=== PATIENT | male | born 1965 | race Two or more races ===

== ENCOUNTER 2024-10-05 12:18 | Emergency (ER) | payer MEDICAID, SELFPAY ==
[2024-10-05 12:44] VITALS: BP 128/87; PULSE 81; RESP 22; TEMP 36.9; O2SAT 94; BMI 51.7
--- NOTE | 2024-10-05 12:54 | PD.EDADULT ---
ED General RME/HPI General Chief complaint: Dizziness Stated complaint: DIZZY, WEAK, CONGESTED X 1 DAYS Time Seen by Provider: 10/05/24 12:52 Arrival date/time: 10/05/24 12:18 CC: Generalized weakness HPI ongoing for 1 day with dry mouth. Patient admits for the past 2 months has had increased urinary frequency and increased thirst. Has a history of hypertension but not of diabetes denies chest pain shortness of breath difficulty breathing nausea or vomiting no other complaints. Related Data Home Medications ?Medication ?Instructions ?Recorded ?Confirmed amlodipine 10 mg tablet (Norvasc) 10 mg PO QDAY #0 tabs 08/09/15 04/30/23 clonidine HCl 0.3 mg tablet 0.3 mg PO QDAY 11/13/22 05/02/23 hydroxyzine HCl 25 mg tablet 25 mg PO TID PRN Anxiety 11/13/22 04/30/23 metoprolol succinate 200 mg 200 mg PO QDAY 11/13/22 04/30/23 tablet,extended release 24 hr Previous Rx's ?Medication ?Instructions ?Recorded meloxicam 7.5 mg tablet 7.5 mg PO QDAY #10 tabs 10/25/23 Allergies Allergy/AdvReac Type Severity Reaction Status Date / Time No Known Allergies Allergy Verified 10/05/24 12:20 Review of Systems Review of Systems Narrative Review of Systems: GEN: No fever, no chills, no weight loss EYES: No discharge, no visual changes, no pain HEENT: No ear pain, no congestion, no sore throat PULM: No shortness of breath, no cough, no congestion CV: No chest pain, no dyspnea on exertion, no palpitations GI: No nausea, no vomiting, no diarrhea, no pain, no constipation : No frequency, no urgency, no dysuria MUSC/SKEL: No joint pain, no back pain SKIN: No rash PSYCH: No hallucinations, no depression HEME/LYMPH: No easy bleeding or bruising tendencies NEURO: +weakness, no headache Past Medical History Past Medical History NEUROLOGIC: Negative Neurological Disorders or Seizures CARDIAC: Positive Cardiac Disorders, Hypercholesterolemia and Hypertension; Negative Congestive Heart Failure RESPIRATORY: Negative Chronic Obstructive Pulmonary Disease (COPD) GASTROINTESTINAL: Positive Gastrointestinal Disorders, Ulcer and Obesity; Negative Hepatitis GENITOURINARY: Negative Genitourinary Disorders or Renal Disease MUSCULOSKELETAL: Positive Musculoskeletal Disorders and Arthritis ENDOCRINE: Negative Endocrine Disorders, Diabetes Mellitus Type 1 or Diabetes Mellitus Type 2 HEMATOLOGIC: Negative Blood Disorders PSYCHO/SOCIAL: Positive Anxiety OTHER HISTORY: Negative Hospitalization, Autoimmune Disease, Shingles, Blood Transfusions, Blood Transfusion Reaction, Anesthesia Reactions or Cancer Family History FAMILY HISTORY: Positive Family Cancer; Negative Family Psychiatric Problems, Family Respiratory Disorders, Family Cardiac Disorders, Family Gastrointestinal Problems, Family Surgery or Family Anesthesia Reaction Surgical History SURGICAL: Positive Arthroscopy Social History SMOKING STATUS: Never smoker SUBSTANCE USE: does not use ED Exam Narrative Physical exam: [General: Morbidly obese not in any acute distress Head normocephalic HEENT: Eyes pupils are PERRLA EOMs are intact mouth pink dry membranes uvula is midline swallow symmetrical phonation is normal all of the subsystems of HEENT are within acceptable limits Neck is supple nontender, no JVD no edema Chest equal chest rise nontender to palpation Respiratory: Clear to auscultation no wheezes crackles or rubs CV: Rate rhythm is regular no murmurs rubs or clicks Abdomen is grossly distended secondary to body habitus soft nontender no masses positive bowel sounds all 4 quadrants Back: No CVA tenderness no spinous process tenderness from cervical spine thoracic and lumbar spine Skin: Intact no petechiae rash induration ulceration or crepitus Extremities: Moving all extremity against resistance cap refill less than 2 seconds neurosensory intact. Bilateral lower extremity edema Neuro: Awake alert oriented x3 Glascow coma 15 no focal deficits] Course Course Course Narrative: This patient has morbid obesity along with his hypertension which seems to be managed on his medications, worsening kidney function and a mildly elevated total bili. There is no acute finding requires emergent or immediate intervention and can have the patient increase his water intake at home and follow-up with his doctor within a week. Quality Measures none Orders Category Date Time Status A1C [Glycohemoglobin w (eAG)] Stat Lab 10/05/24 13:04 Completed CBC Stat Lab 10/05/24 13:04 Completed CMP [Comprehensive Metabolic Panel] Stat Lab 10/05/24 13:04 Completed Vital Signs Vital signs: Vital Signs Temperature 98.5 F 10/05/24 12:44 Pulse Rate 81 10/05/24 12:44 Respiratory Rate 22 H 10/05/24 12:44 Blood Pressure 128/87 H 10/05/24 12:44 Pulse Oximetry (%) 94 L 08/27/25 12:44 Oxygen Delivery Method Room Air 10/05/24 12:44 Discharge Plan Plan Patient Disposition: HOME (Self Care) Patient condition on transfer: Stable Prescriptions/Referrals Prescriptions/Med Rec: No Action amlodipine [Norvasc] 10 MG tablet 10 mg PO QDAY Qty: 0 metoprolol succinate 200 mg Tablet Extended Release 24 Hr 200 mg PO QDAY clonidine HCl 0.3 mg Tablet 0.3 mg PO QDAY hydroxyzine HCl 25 mg Tablet 25 mg PO TID PRN (Reason: Anxiety) meloxicam 7.5 mg tablet 7.5 mg PO QDAY Qty: 10 0RF Referrals: Bonnie Alford PA-C [Primary Care Provider] - In 1 week Problem List Clinical Impression: Renal insufficiency, Morbid obesity Patient/Caregiver Discharge Instructions Education Materials: Obesity and Its Impact on Health, ED Renal Insufficiency Additional Instructions: Increase water intake in the next 2 to 3 days follow-up with your primary care doctor if there is worsening of symptoms in spite of visit return to the emergency room medially for further evaluation. Print Language: Niuean Stand Alone Forms: [employer] Info., Work/School Release, Patient Portal Info Letter PA/RONNI Supervising Physician PA/RONNI Supervising Physician: Lawrence Knight ENP [facility] Clinical Information Provided by patient Medical Records Reviewed [facility] Meds/Rx Considered, not Ordered None Labs/Rad/Tests considered, not Ordered None EKG EKG not done Lab Interpretation Lab(s) interpretation(s): CBC shows no acute leukocytosis anemia thrombocytopenia CMP shows significant electrolyte imbalances there is a worsening creatinine at 1.8, note 1.4-year and a half ago. BUN is unremarkable. No other electrolyte imbalances no transaminitis T. bili is elevated at 1.6. Imaging Imaging interpretation: none Medication Administration(s) none
[2024-10-05 13:19] LABS: Basophils # (Auto) 0.0 Thou/mm3 (0.0-0.2); Basophils % (Auto) 1 % (0-2.5); Eosinophils # (Auto) 0.1 Thou/mm3 (0.0-0.5); Eosinophils % (Auto) 1 % (0-10); Hematocrit 36.4 % (41.0-53.0); Hemoglobin 13.5 g/dL (13.5-16.0); Immature Granulocytes Auto 0.03 Thou/mm3 (0.00-0.00); Lymphocytes # (Auto) 1.3 Thou/mm3 (1.0-4.8); Lymphocytes % (Auto) 18 % (10-50); Mean Corpuscular HGB Conc 37.1 g/dl (31.0-37.0); Mean Corpuscular Hemoglobin 33.3 pg (25.0-35.0); Mean Corpuscular Volume 90 fL (80-100); Monocytes # (Auto) 0.9 Thou/mm3 (0.0-0.8); Monocytes % (Auto) 12 % (0-12); Neutrophils # (Auto) 4.9 Thou/mm3 (1.8-7.7); Neutrophils % (Auto) 68 % (37-80); Nucleated Red Blood Cell # 0.00 Thou/mm3 (0.00-0.00); Nucleated Red Blood Cell % 0 /100 WBC (0); Platelet Count 239 Thou/mm3 (140-440); RDW Standard Deviation 40.3 fL (35.1-43.9); Red Blood Count 4.05 Miln/mm3 (4.50-5.90); White Blood Count 7.2 Thou/mm3 (3.8-10.6)
[2024-10-05 13:35] LABS: Alanine Aminotransferase 32 U/L (10-49); Albumin, Serum 4.7 gm/dL (3.5-5.0); Albumin/Globulin Ratio 1.8 (1.2-2.2); Alkaline Phosphatase 84 U/L (46-116); Anion Gap 8 (7-16); Aspartate Amino Transferase 33 U/L (0-34); BUN/Creatinine Ratio 11 Ratio (12-20); Bilirubin,Total 1.6 mg/dL (0.3-1.2); Blood Urea Nitrogen 20 mg/dL (9-23); Calcium 10.0 mg/dL (8.3-10.6); Calcium (Corrected) 10.0 mg/dL (8.5-10.1); Carbon Dioxide 34.3 mMol/L (20.0-31.0); Chloride 99 mMol/L (98-107); Creatinine (Component) 1.8 mg/dL (0.6-1.3); Estimated Creatinine Clearance 65.8 mL/min (>60); Globulin 2.6 gm/dL (2.3-3.5); Glucose 104 mg/dL (74-106); Glucose Estimated Average 94 mg/dL (80-131); Hemoglobin A1C 4.9 % Hgb (4.8-6.0); Osmolality,Calculated 283 (275-295); Potassium 3.4 mMol/L (3.4-5.1); Sodium 141 mMol/L (136-145); Total Protein 7.3 gm/dL (5.7-8.2); eGFR 43 See Note
== END 2024-10-05 14:42 | disposition home or self-care (01) ==
PROVIDERS: Registered Nurse General Practice; Emergency Provider Emergency Medicine; PCP Physician Assistant
DX: N28.9 Disorder of kidney and ureter, unspecified (principal); I10 Essential (primary) hypertension; E66.01 Morbid (severe) obesity due to excess calories; Z68.43 Body mass index [BMI] 50.0-59.9, adult
CPT/HCPCS: 36415; 80053; 83036; 85025; 99283